=== PATIENT | female | born 1985 | race Caucasian/White ===

== ENCOUNTER 2024-07-23 13:29 | Emergency (ER) | payer OTHER, SELFPAY ==
[2024-07-23 13:32] VITALS: BP 140/91
[2024-07-23 13:58] LABS: % Basophils 0.3 % (0-2); % Eosinophils 0.5 % (0-6); % Lymphocytes 28.5 % (20.5-51.1); % Monocytes 7.2 % (1.7-9.3); % Neutrophils 63.5 % (42.2-75.2); Absolute Lymphocytes 1.1 10^3/uL (1.2-3.4); Absolute Monocytes 0.3 10^3/uL (0.1-0.6); Absolute Neutrophils 2.5 10^3/uL (1.4-6.5); Hematocrit 37.2 % (37.0-47.0); Hemoglobin 12.6 g/dL (12.0-16.0); Mean Corp Hgb Conc. 33.9 g/dL (33.0-37.0); Mean Corpuscular Volume 91.4 fL (81.0-99.0); Mean Platelet Volume 8.9 fL (7.4-10.4); Nucleated Red Blood Cells % 0 %; Platelet Count 153 10^3/uL (130-400); Red Blood Cell Count 4.07 10^6/uL (4.20-5.40); Red Cell Dist. Width 12.6 % (11.5-14.5); White Blood Cell Count 3.9 10^3/uL (4.8-10.8)
[2024-07-23 14:05] LABS: HCG, Serum Qualitative Screen Negative
[2024-07-23 14:07] LABS: ALT (SGPT) 20 U/L (0-35); AST (SGOT) 25 U/L (14-36); Albumin 4.7 g/dl (3.5-5.0); Alkaline Phosphatase 43 U/L (38-126); Blood Urea Nitrogen 17 mg/dl (7-17); Calcium 9.6 mg/dl (8.4-10.2); Carbon Dioxide 27 mmol/L (22-30); Chloride 105 mmol/L (98-107); Glucose 113 mg/dl (70-99); Potassium 3.7 mmol/L (3.5-5.1); Sodium 142 mmol/L (135-145); Total Bilirubin 0.5 mg/dl (0.2-1.3); Total Protein 7.2 g/dl (6.3-8.2); eGFR > 60.00
[2024-07-23 14:18] LABS: Troponin I < 0.012 ng/ml
[2024-07-23 14:37] LABS: D-Dimer 0.32 ug/mlFEU (0.00-0.50)
[2024-07-23 16:37] VITALS: BP 122/72
--- NOTE | 2024-07-23 17:25 | ED.GENMED ---
History of Present Illness
General
Chief Complaint: Chest Problem
Time Seen by Provider: 07/23/24 17:03
History of Present Illness
History of Present Illness:
Patient presents to the emergency department with left-sided sharp chest pain worse with deep breath. Symptoms started on Wednesday suddenly. She notes that she was lifting weights at the gym the day prior to this but denies any injury. Has recently
had some upper respiratory infections with cough which she attributes to viruses that her kids have had. Denies any shortness of breath. Denies any leg swelling. Denies any history of blood clots. Denies any current use of hormones
Phy Exam
Physical Exam
Physical Exam:
GENERAL APPEARANCE: NAD, well developed/ well nourished
EYES lids/conjunctiva normal
EARS/NOSE/THROAT Mucous membranes moist, uvula midline without oral pharyngeal erythema, exudate or swelling
HEAD/NECK normocephalic atraumatic, neck is supple.
RESPIRATORY respiratory effort normal, speaks in full sentences, no accessory muscle use. Lungs clear to auscultation without rhonchi, wheezes, rales
CARDIAC Regular rate and rhythm, no edema.
ABDOMINAL Soft, ND/NT. No pulsatile masses on exam, rebound tenderness, Sharma sign or pain over Mcburney's point.
MUSCLES/EXTREMITIES No abnormal range of motion, no swelling.
SKIN Warm, pink and dry. No rashes
NEUROLOGICAL Speech is clear and appropriate. Normal level of consciousness. 5/5 strength in all extremities.
PSYCH Normal mood and affect. Judgement/competence is appropriate
Course
Orders/Labs/Results
Orders:
Orders
07/23/24 13:37
ECG [Electrocardiogram (*1)] Urgent
Reason for Study: Chest Pain
EKG- Treatment ONCE
07/23/24 13:38
Test Result ONCE
07/23/24 13:45
Complete Blood Count/With Diff Urgent
Comprehensive Metabolic Panel Urgent
D-Dimer Urgent
HCG, Serum Qualitative Screen Urgent
Troponin I Urgent
07/23/24 16:32
CR Chest - 2 Views Stat
Comment:
Reason For Exam: chest pain
Abnormal Lab Results
07/23/24
13:45
WBC 3.9 L 10^3/uL
(4.8-10.8)
RBC 4.07 L 10^6/uL
(4.20-5.40)
Absolute Lymphs (auto) 1.1 L 10^3/uL
(1.2-3.4)
Glucose 113 H mg/dl
(70-99)
07/23/24 13:45
07/23/24 13:45
Vital Signs
Initial and Last Documented VS:
Initial Vital Signs
Temp Pulse Resp BP Pulse Ox
99.0 F 104 20 140/91 100
07/23/24 13:32 07/23/24 13:32 07/23/24 13:32 07/23/24 13:32 07/23/24 13:32
Last Documented Vital Signs
Temp Pulse Resp BP Pulse Ox
99.0 F 75 18 122/72 98
07/23/24 13:32 07/23/24 16:37 07/23/24 16:37 07/23/24 16:37 07/23/24 16:37
*Critical Care Note
Total Time (30-74mins, 75-104mins- exclusive of procedures): Not Applicable
ED Attending Note
ED Attending Note
ED Attending Note:
Patient presents with pleuritic chest pain. She is very well-appearing low risk by Wells criteria with a negative D-dimer. Troponin is negative greater than 6 hours from onset of pain. EKG without ischemic changes. Suspect pleuritic irritation
or chest wall irritation from lifting weights or recent viral infection. Instructed her to treat with Motrin and follow-up with her primary doctor this week. Return precautions given.
-
Portions of this chart may have been created with voice recognition software.� Occasional wrong word or��sound alike� substitutions may have occurred due to the inherent limitations of voice recognition software.
Discharge Plan
Departure
Patient Disposition: Home (Routine Discharge)
Date of Disposition: 07/23/24
Time of Disposition: 17:56
Patient with high blood pressure during this ER visit?: Yes
Discharge Problem:
Pleurisy
Instructions: Chest Pain PCP Follow Up
Referrals:
Elisha Kennedy, DO [Family Provider] -
Activity Restrictions/Additional Instructions:
ibuprofen for pain
return to ER with new or worsening symptoms
Interventions
Interventions:
*Risk Screen - Suicide Last Done: 07/23/24 16:35
*General Assessment Last Done: 07/23/24 16:35
*Neglect/Abuse Screening Last Done: 07/23/24 16:35
*ED- Fall Risk Assessment Last Done: 07/23/24 16:35
*ED COVID-19 Vaccine History Last Done: 07/23/24 16:35
*Nursing Disposition Last Done: 07/23/24 18:20
ED- Cardiac Assessment Last Done: 07/23/24 16:34
ED- Pulmonary Assessment Last Done: 07/23/24 16:34
Discharge Date and Time
Discharge Date/Time: 07/23/24 18:21
Print Language: CROATIAN
== END 2024-07-23 18:21 | disposition home or self-care (01) ==
LOC: EMR 13:29
PROVIDERS: Physician Assistant Medical; EMERGENCY PHYSICIAN Emergency Medicine; FAMILY PHYSICIAN Family Medicine
DX: R09.1 Pleurisy (principal)
CPT/HCPCS: 99283; 71046; 80053; 84484; 84703; 85025; 85379; 93005